=== PATIENT | male | born 1955 | race Asian ===

== ENCOUNTER 2019-08-25 12:42 | Emergency (ER) | payer OTHER ==
[~2019-08-25] VITALS: Ht 172.7 cm; Wt 127.3 kg
[2019-08-25] MEDS ORDERED: WARF2TAB30 PO (13:06)
[2019-08-25] MEDS ORDERED: MULT-1082 PO (13:06)
[2019-08-25] MEDS ORDERED: LEVO88TA4 PO (13:06)
[2019-08-25] MEDS ORDERED: AMLO5TAB9 PO (13:06)
[2019-08-25] MEDS ORDERED: ATOR40TA28 PO (13:06)
[2019-08-25] MEDS ORDERED: METF-960 PO (13:06)
[2019-08-25] MEDS ORDERED: GLIM2 PO (13:06)
[2019-08-25] MEDS ORDERED: METO25XL PO (13:06)
[2019-08-25] MEDS ORDERED: ASCO500 PO (13:06)
[2019-08-25] MEDS ORDERED: LOSA50TA37 PO (13:06)
[2019-08-25] MEDS ORDERED: HYDR-1475 PO (13:06)
[2019-08-25] MEDS ORDERED: ALLO300 PO (13:06)
[2019-08-25 15:10] LABS: APPEARANCE,URINE CLEAR (CLEAR); BILIRUBIN,URINE NEGATIVE (NEGATIVE); GLUCOSE, URINE (UA) NEGATIVE (NEGATIVE); KETONES,URINE NEGATIVE (NEGATIVE); LEUKOCYTE ESTERASE ,URINE TRACE (NEGATIVE); NITRATE,URINE NEGATIVE (NEGATIVE); OCCULT BLOOD,URINE LARGE (NEGATIVE); PROTEIN,URINE POS 1+ (NEGATIVE); UROBILINOGEN,URINE 0.2 mg/dL (<=1.0)
[2019-08-25 15:17] LABS: RBC,URINE 51-100 /HPF (0-2)
[2019-08-25 15:18] LABS: BACTERIA,URINE Rare /HPF (None Seen); WBC,URINE 0-2 /HPF (0-5)
[2019-08-25 15:19] LABS: SQUAMOUS EPITHELIAL CELL,UR Rare /LPF (None Seen)
[2019-08-25 17:33] LABS: EOSINOPHILS % (AUTO) 2.9 % (1.0-6.0); HEMATOCRIT 41.8 % (41-53); HEMOGLOBIN 13.9 g/dL (13.5-17.5); LYMPHOCYTES # (AUTO) 2.8 K/uL (1.0-4.8); LYMPHOCYTES % (AUTO) 27.7 % (22.0-44.0); MEAN CORPUSCULAR HEMOGLOBIN 29.3 pg (26.0-34.0); MEAN CORPUSCULAR HGB CONC 33.1 G/dL (31.0-37.0); MEAN CORPUSCULAR VOLUME 89 fL (80-100); MONOCYTES # (AUTO) 0.9 K/uL (0.1-1.0); MONOCYTES % (AUTO) 8.7 % (2.0-9.0); NEUTROPHILS % (AUTO) 59.7 % (40.0-70.0); PLATELET COUNT (AUTO) 210 K/uL (150-450); RED BLOOD CELL COUNT(AUTO) 4.72 MIL/uL (4.50-5.90); RED CELL DISTRIBUTION WIDTH 13.3 % (11.5-14.5)
[2019-08-25 17:45] LABS: ANION GAP 1 mmol/L (8-16); CALCIUM, TOTAL 9.6 mg/dL (8.8-10.5); CARBON DIOXIDE 28 mmol/L (22-29); CHLORIDE 97 mmol/L (98-107); CREATININE 1.04 mg/dL (0.60-1.30); GLOMERULAR FILTR. RATE CALC > 60 mL/min (>60); GLUCOSE,RANDOM 148 mg/dL (70-110); POTASSIUM 3.4 mmol/L (3.5-5.1); SODIUM SERUM 126 mmol/L (136-145); UREA NITROGEN, BLOOD 11 mg/dL (7-18)
[2019-08-25] MEDS ORDERED: WARF3TAB8 PO (19:55)
[2019-08-25] MEDS ORDERED: LEVO175T9 PO (19:55)
[2019-08-25] MEDS ORDERED: SODIUM CHLORIDE 0.9% 1,000 ML IV ONE (20:00)
[2019-08-25 21:25] LABS: ANION GAP 4 mmol/L (8-16); CALCIUM, TOTAL 8.7 mg/dL (8.8-10.5); CARBON DIOXIDE 27 mmol/L (22-29); CHLORIDE 98 mmol/L (98-107); GLOMERULAR FILTR. RATE CALC > 60 mL/min (>60); GLUCOSE,RANDOM 187 mg/dL (70-110); POTASSIUM 3.3 mmol/L (3.5-5.1); SODIUM SERUM 129 mmol/L (136-145); UREA NITROGEN, BLOOD 11 mg/dL (7-18)
[2019-08-25 22:37] LABS: INR 3.1 (0.9-1.1); PROTHROMBIN TIME 30.5 SEC (9.4-11.6)
[2019-08-25 23:06] VITALS: BP 148/88
== END 2019-08-25 23:28 | disposition home or self-care (01) ==
LOC: EMS 12:45
DX: R33.9 Retention of urine, unspecified (principal); R31.9 Hematuria, unspecified; D68.32 Hemorrhagic disorder due to extrinsic circulating anticoagulants; E11.9 Type 2 diabetes mellitus without complications; I10 Essential (primary) hypertension; Z79.84 Long term (current) use of oral hypoglycemic drugs; Z79.01 Long term (current) use of anticoagulants
CPT/HCPCS: 36415; 51702; 74018; 74176; 76770; 80048; 81001; 81002; 82962; 85025; 85610; 99285; J7030